=== PATIENT | female | born 1960 | race Caucasian/White ===

== ENCOUNTER 2021-07-23 10:54 | Emergency (ER) | payer OTHER, SELFPAY ==
--- NOTE | ~2021-07-23 | XR_ITS ---
EXAMINATION: XR chest 2V DATE: 07/23/2021 11:15 INDICATION: Cough. TECHNIQUE: Frontal and lateral views of the chest were obtained. COMPARISON: None. FINDINGS: The chest demonstrates clear lungs without pneumonia, pleural effusion, or pneumothorax. Th e heart size is normal. IMPRESSION: 1. No acute cardiopulmonary disease. Reviewed, dictated and finalized at location A. [employer]SEMBLER
--- NOTE | 2021-07-23 10:57 | ED.URI ---
HPI - URI/Sore Throat General Chief Complaint: Upper Respiratory Infection Stated Complaint: COUGH/SORE THROAT/LOSING VOICE/EARACHE Time Seen by Provider: 07/23/21 10:57 Source: patient and RN notes reviewed History of Present Illness HPI Narrative: Patient is a 60-year-old female who presents the urgent care with complaints of cough that started Thursday and voice loss that started last Thursday. Patient states that she has had a cold off and on since May. States that the cough is currently nonproductive and she has been using Aleve D and NyQuil. Denies any fever, chills, nausea, vomiting. Patient has had the Covid vaccine, [employer]. Denies of any known exposures to Covid/flu/strep. No other acute complaints. No acute distress noted. Patient aware of the plan of care. Some parts of this dictation were generated by voice recognition software and may contain typographical and/or grammatical inaccuracies. Related Data Home Medications Medication Instructions Recorded Confirmed atorvastatin 07/23/21 fluoxetine mg 07/23/21 levothyroxine 07/23/21 metoprolol succinate PO 07/23/21 Allergies Allergy/AdvReac Type Severity Reaction Status Date / Time clarithromycin Allergy Verified 08/17/13 13:51 Review of Systems Review of Systems: CONSTITUTIONAL: Denies fever, chills, or sweats. EYES: Denies visual changes, redness, or discharge. ENT: Reports of sinus congestion, postnasal drainage, rhinorrhea and voice loss CARDIOVASCULAR: Denies chest pain, palpitations, or edema. RESPIRATORY: Reports of harsh cough GASTROINTESTINAL: Denies abdominal pain, nausea, vomiting, or diarrhea. GENITOURINARY: Denies dysuria or hematuria. SKIN: Denies rash or itching. MUSCULOSKELETAL: Denies back pain, joint pain, or myalgia. NEUROLOGIC: Denies headache, numbness, or weakness. All other systems reviewed are negative, except as documented in HPI. PMFSH Comments At the time of my signature, I reviewed and agree with the nursing past medical, surgical, social, and family history. There is no relevant family history pertinent to the patient complaint. Exam Narrative: GENERAL: This is a well-nourished, well-developed patient, in no apparent distress. HEAD: normocephalic, atraumatic. EYES: PERRL. Sclera clear/white. Vision is grossly intact. EARS: External ears normal, auditory canals clear and without drainage, TMs normal without perforation. Hearing grossly intact. NOSE: External nose normal with no obvious nasal discharge, nares without redness, clear rhinorrhea. THROAT: Mucous membranes moist, posterior pharynx clear. Postnasal drainage NECK: Neck supple CARDIOVASCULAR: Regular rate and rhythm without murmurs, gallops, or rubs. RESPIRATORY: Diminished right lower, slight crackles throughout. No wheezes. Persistent harsh nonproductive cough SKIN: warm, intact with no suspicious lesions or rash, good texture and turgor. NEURO: awake, alert, and oriented to person, place and time. There were no obvious focal neurologic abnormalities. EXTREMITIES: No clubbing, cyanosis, or edema. Course Vital Signs Vital signs: Vital Signs Temperature 97 F L 07/23/21 11:07 Pulse Rate 78 07/23/21 11:07 Respiratory Rate 16 07/23/21 11:07 Blood Pressure 160/89 H 07/23/21 11:07 Pulse Oximetry 10 L 07/23/21 11:07 Temperature 97 F L 07/23/21 11:07 Pulse Rate 78 07/23/21 11:07 Respiratory Rate 16 07/23/21 11:07 Blood Pressure 160/89 H 07/23/21 11:07 Pulse Oximetry 10 L 07/23/21 11:07 Reviewed-patient is informed that they may have pre-hypertension or hypertension based on a blood pressure reading in the department. I recommend the patient call the primary care provider listed on their discharge instructions or a physician of their choice this week to arrange follow-up for further evaluation of possible pre-hypertension or hypertension. MDM - URI/Sore Throat MDM Narrative Medical decision making narrative: Reviewe
[2021-07-23 11:07] VITALS: BP 160/89; PULSE 78; RESP 16; TEMP 36.1; O2SAT 10
== END 2021-07-23 11:41 | disposition home or self-care (01) ==
PROVIDERS: Emergency Provider Nurse Practitioner Family
DX: J40 Bronchitis, not specified as acute or chronic (principal); E78.00 Pure hypercholesterolemia, unspecified; I10 Essential (primary) hypertension; E03.9 Hypothyroidism, unspecified
CPT/HCPCS: 71046; 99203; G0463

== ENCOUNTER 2022-09-04 10:36 | Emergency (ER) | payer OTHER, SELFPAY ==
--- NOTE | 2022-09-04 10:39 | ED.URI ---
HPI - URI/Sore Throat General Chief Complaint: Upper Respiratory Infection Stated Complaint: COUGH/SINUS/HEADACHE/DRAINAGE Time Seen by Provider: 09/04/22 10:38 Source: patient Mode of arrival: ambulatory Limitations: no limitations History of Present Illness HPI Narrative: Irina is a 61-year-old female patient presenting to clinic today with complaints of cough, sinus drainage, and headache since new year's. She reports her PCP gave her prescription for azithromycin and that improved her symptoms slightly however after she finished at her symptoms return. States that she has had green globular mucus coming from her nose and she is coughing this up as well. She denies a fever but does have a lot of sinus pressure. The cough is keeping her up at night MD elicited complaint: sore throat and nasal congestion Related Data Home Medications Medication Instructions Recorded Confirmed atorvastatin 40 mg tablet 40 mg PO DAILY 07/23/21 09/04/22 fluoxetine 20 mg capsule 20 mg PO DAILY 07/23/21 09/04/22 levothyroxine 125 mcg tablet 125 mcg PO DAILY 07/23/21 09/04/22 metoprolol succinate 50 mg 50 mg PO DAILY 07/23/21 09/04/22 tablet,extended release 24 hr Allergies Allergy/AdvReac Type Severity Reaction Status Date / Time clarithromycin Allergy Other Verified 09/04/22 10:50 Review of Systems Review of Systems: Pertinent positives per HPI. Patient denies any fever, chills, rash, headache, visual changes, dizziness, cough, shortness of breath, chest pain, palpitations, nausea, vomiting, diarrhea, constipation, abdominal pain, or any urinary issues. PMFSH Comments At the time of my signature, I reviewed and agree with the nursing past medical, surgical, social, and family history. There is no relevant family history pertinent to the patient complaint. Exam Narrative: General: Well-developed, well nourished, in no apparent distress Head: Normocephalic, atraumatic Eyes: Pupils equally round and reactive to light bilaterally, EOM intact, sclera and conjunctive clear, no discharge, lids normal Ears: TMs intact and dull, ear canals clear, no drainage, grossly hearing normal. Nose: Nares patent, green nasal discharge, severe inflammation, maxillary, ethmoid, and frontal sinus tenderness. Mouth: Oral pharynx without lesions or masses, good dentition, MMM. Postnasal drip Neck: Supple, trachea midline, no enlargement of anterior or posterior cervical nodes, no thyroid masses or goiter palpable. Cardio: Regular rate and rhythm, s1 and s2 normal, no murmur appreciated. Resp: Clear to auscultation bilaterally, no rhonchi, rales, wheezing or rubs Course Course Emergency Course: Portions of this record may have been created with voice recognition software. Level of Care: Express Care Visit Vital Signs Vital signs: Vital signs reviewed MDM - URI/Sore Throat MDM Narrative Medical decision making narrative: At the time of visit patient is resting comfortably on exam table. I suspect patient has acute bacterial rhinosinusitis. Prescription for Augmentin and prednisone was sent to pharmacy. Supportive measures were discussed with the patient she voiced understanding discharge instructions agrees to treatment plan Differential Diagnosis Differential diagnosis: Likely upper respiratory infection, sinusitis and viral infection Discharge Plan Discharge Clinical Impression: Acute bacterial rhinosinusitis Patient Disposition: Home, Self-Care Condition: Stable Instructions: Antibiotic Form, Rhinosinusitis (ED) Additional Instructions: Discussed patient's elevated blood pressure at the time of visit and recommend follow-up with primary care physician to have this reevaluated within the next week if symptoms persist. Take prescription medications only as prescribed-Augmentin and prednisone Increase fluids and stay well hydrated Tylenol/motrin for pain/fever Flonase and OTC antihistamines as directed VicLeftronic vapor
[2022-09-04 10:47] VITALS: BP 186/98; PULSE 89; RESP 18; TEMP 36.1; O2SAT 99
[2022-09-04 10:58] VITALS: BP 172/105
== END 2022-09-04 11:01 | disposition home or self-care (01) ==
PROVIDERS: Emergency Provider Nurse Practitioner Family
DX: J01.90 Acute sinusitis, unspecified (principal); E78.00 Pure hypercholesterolemia, unspecified; I10 Essential (primary) hypertension; E03.9 Hypothyroidism, unspecified
CPT/HCPCS: 99213; G0463

== ENCOUNTER 2023-08-19 11:41 | Emergency (ER) | payer OTHER, SELFPAY ==
[2023-08-19 11:53] VITALS: BP 152/84; PULSE 67; RESP 16; TEMP 36.1; O2SAT 100
--- NOTE | 2023-08-19 12:17 | ED.URI ---
HPI - URI/Sore Throat General Chief Complaint: Upper Respiratory Infection Stated Complaint: EARACHE/LOSING VOICE/HEADACHE/SINUS/COUGH History of Present Illness HPI Narrative: 62-year-old female presented for complaint of sinus drainage, cough, for about 3 weeks and laryngitis with sore throat for about 2 weeks. And right ear pain for about 3 days. Patient completed a course of a Z-Chidi on 08/15. Denies significant presented symptoms. She denies shortness of breath, wheezing, nausea, vomiting, diarrhea, fevers or chills. Related Data Home Medications Medication Instructions Recorded Confirmed atorvastatin 40 mg tablet 40 mg PO DAILY 07/23/21 08/19/23 fluoxetine 20 mg capsule 20 mg PO DAILY 07/23/21 08/19/23 levothyroxine 125 mcg tablet 125 mcg PO DAILY 07/23/21 08/19/23 metoprolol succinate 50 mg 50 mg PO DAILY 07/23/21 08/19/23 tablet,extended release 24 hr Allergies Allergy/AdvReac Type Severity Reaction Status Date / Time clarithromycin AdvReac Mild Hives Verified 08/19/23 11:47 Review of Systems Review of Systems: ROS per HPI [facility] Past Medical History Medical History (Updated 08/19/23 @ 12:23 by Belkis Reynoso, QUALITY CONTROL TECH [employer]) HTN (hypertension) Exam Narrative: GENERAL: well-appearing, no acute distress. EYES: conjunctivae clear ENT: Mucous membranes moist. Left TM pearly bender with normal light reflex; right TM erythematous, bulging and intact, canal not erythematous, no drainage no tragal tenderness. Oropharynx erythematous without lesions. Tonsils not enlarged and without exudate. Hoarse voice. No drooling, no trismus, uvula midline. No tripod positioning, hot potato voice, or soft palate swelling. NECK: Supple. No lymphadenopathy CHEST: Clear to auscultation, breath sounds equal. No respiratory distress, speaks in full sentences. HEART: Regular rate and rhythm. No murmur heard. SKIN: Warm, dry NEURO: Alert and oriented x3. Course Course Emergency Course: Patient is aware of diagnosis, understands and agrees to treatment plan. Anticipatory guidance given. Patient agrees to follow-up as directed and is aware of reasons to seek care at the emergency department. Portions of this record may have been created with voice recognition software Level of Care: Express Care Visit Vital Signs Vital signs: Vital Signs Temperature 96.9 F L 08/19/23 11:53 Pulse Rate 67 08/19/23 11:53 Respiratory Rate 16 08/19/23 11:53 Blood Pressure 152/84 H 08/19/23 11:53 Pulse Oximetry 100 08/19/23 11:53 Temperature 96.9 F L 08/19/23 11:53 Pulse Rate 67 08/19/23 11:53 Respiratory Rate 16 08/19/23 11:53 Blood Pressure 152/84 H 08/19/23 11:53 Pulse Oximetry 100 08/19/23 11:53 MDM - URI/Sore Throat MDM Narrative Medical decision making narrative: Discussed physical exam findings, Right aOM, and prescriptions with patient. Advised supportive treatments. Patient is appropriate for outpatient treatment and follow-up. Differential Diagnosis Differential diagnosis: Likely upper respiratory infection, otitis media, sinusitis, viral infection and pharyngitis Discharge Plan Discharge Clinical Impression: Laryngitis Otitis media Qualifiers: Otitis media type: suppurative Chronicity: acute Laterality: right Recurrence: non-recurrent Spontaneous tympanic membrane rupture: without spontaneous rupture Qualified Code(s): H66.001 - Acute suppurative otitis media without spontaneous rupture of ear drum, right ear Patient Disposition: Home, Self-Care Condition: Stable Instructions: Antibiotic Form, Ear Infection (ED), Upper Respiratory Infection (ED) Additional Instructions: Take antibiotics and steroids as directed. Recommend antihistamine such as Benadryl, Zyrtec or Ml for sinus congestion Flonase nasal spray, 1 spray in each nostril once daily until symptoms improve Symptomatic treatment includes: rest, fluids, and increase humidity of the air at home.
== END 2023-08-19 12:21 | disposition home or self-care (01) ==
PROVIDERS: Emergency Provider Nurse Practitioner Family
DX: J04.0 Acute laryngitis (principal); H66.001 Acute suppurative otitis media without spontaneous rupture of ear drum, right ear; I10 Essential (primary) hypertension
CPT/HCPCS: 99213; G0463

== ENCOUNTER 2025-05-05 22:45 | Emergency (ER) | payer MEDICARE, SELFPAY ==
--- NOTE | ~2025-05-05 | CT_ITS ---
EXAMINATION: CT abdomen pelvis w con DATE: 05/06/2025 00:56 INDICATION: Right flank pain. TECHNIQUE: Computed tomography (CT) of the abdomen and pelvis was performed with 100 mL Omnipaque 350 intravenous contrast. Automated exposure control and iterative reconstruction technique were employed. The dose-length product was 862.94 mGy-cm. COMPARISON: None. FINDINGS: The visualized portions of the lung bases demonstrate mild atelectasis. No pleural effusion. The heart size is normal. No pericardial effusion. The liver, gallbladder, spleen, pancreas, and adrenal glands are normal. There are cysts in the kidneys measuring up to 15 mm on the right. There is diverticulosis of the colon without evidence of diverticulitis. There are no dilated loops of bowel. The appendix is normal. There are no pathologically enlarged lymph nodes. There is no free intraperitoneal fluid. There is moderate thoracic and lumbar spondylosis. There are Schmorl's nodes at many levels. IMPRESSION: 1. No etiology for the patient's symptoms. Reviewed, dictated and finalized at location E.
[2025-05-05 22:52] VITALS: BP 158/85; PULSE 96; RESP 20; TEMP 36.5; O2SAT 96
[2025-05-06 00:17] LABS: Hematocrit 40.0 % (37.0-47.0); Hemoglobin 13.1 g/dL (12.0-15.0); Immature Granulocyte Percent A 0.2 % (0-0.5); Lymphocytes Absolute Auto 2.33 K/mm3 (0.9-3.2); Mean Corpuscular HGB Conc 32.8 g/dl (32-36); Mean Corpuscular Hemoglobin 27.8 pg (26-34); Mean Corpuscular Volume 84.7 fl (80-100); Nucleated Red Blood Cells Absolute Auto 0.000 K/mm3 (0.0-0.012); Nucleated Red Blood Cells Perc 0.0 % (0.0-0.2); Platelet Count Result 252 k/mm3 (150-375); Red Blood Count 4.72 M/mm3 (4.2-5.4); White Blood Count 8.4 K/mm3 (4.5-10.0)
--- NOTE | 2025-05-06 00:19 | ECG_ITS ---
Test Date: 2025-05-06 00:29:46 Measurements Intervals [place] Rate: 71 P: 52 DE: 196 QRS: 27 QRSD: 94 T: 26 QT: 380 QTc: 413 Interpretive Statements SINUS RHYTHM NORMAL ECG No previous ECG available for comparison Electronically Signed On 05-06-2025 08:47:24 CDT by Dakota Rosales M.D.
[2025-05-06 00:25] LABS: Alanine Aminotransferase 35 U/L (6-35); Albumin Level 4.6 g/dL (3.5-5.1); Alkaline Phosphatase 89 U/L (38-126); Anion Gap 11 mmol/L (4-12); Aspartate Amino Transferase 35 U/L (14-36); Bilirubin,Total 0.2 mg/dL (0.2-1.3); Blood Urea Nitrogen 9 mg/dL (7-17); Calcium 9.3 mg/dL (8.4-10.2); Carbon Dioxide 22 mmol/L (22-30); Chloride 104 mmol/L (98-107); Estimated CRCL calculation 64 ml/min; Estimated Glomerular Filt Rate > 60; Glucose 112 mg/dL (65-110); Lipase 75 U/L (23-300); Potassium 3.8 mmol/L (3.4-5.0); Sodium 137 mmol/L (137-145); Total Protein 7.2 g/dL (6.3-8.2)
[2025-05-06] MEDS: ONDANSETRON INJ 4 MG/2 ML VIAL IV PUSH (00:37)
[2025-05-06] MEDS: MORPHINE SULFATE (*CRX) 4 MG/ML INJ IV PUSH (00:37)
[2025-05-06 00:40] LABS: Add Urine Microscopic? YES; Appearance Urine Cloudy (Clear); Glucose Urine UA Negative (Negative); Leukocyte Esterase Ur 1+ LEU/UL (Negative); Need Manual Microscopic Reviewed; Nitrate Urine Negative (Negative); Specific Grav Ur 1.036 (1.001-1.035)
--- OUTSIDE RECORDS SUMMARY | 2025-05-06 00:59 | XMS_ITS | Clinical Summary ---
Author Organization [facility] Address [address] [place] [address] Care Team Providers Care Supervisor Patching Name Role Phone Floyd Madlonado MD Primary Care Provider [phone] Allergies Active Allergy Reactions Criticality Noted Date Comments Clarithromycin Rash Low 06/17/2013 Medications metoprolol succinate ER 24 hour (TOPROL XL) 50 mg tablet Take 50 mg by mouth daily. Active FLUoxetine (PROZAC) 20 mg tablet Take 20 mg by mouth daily. Active ibandronate (BONIVA) 3 mg/3 mL Syringe Inject 3 mg by intraveous injection one time only. Active atorvastatin (LIPITOR) 40 mg tablet Take 40 mg by mouth Daily LATE. Active ergocalciferol (VITAMIN D2) 50,000 unit capsule 3 Active LEVOTHYROXINE 112 mcg tablet 5 Active nystatin (MYCOSTATIN) 100,000 unit/gram Cream Apply to affected area 2 times daily. 30 Gram 1 5 Active triamcinolone acetonide (KENALOG) 0.5 % Cream Apply to affected area 2 times daily. 30 Gram 1 5 Active Active Problems Problem Noted Date Diagnosed Date Family history of breast cancer in mother 2014 UTI (lower urinary tract infection) 10/27/2014 BV (bacterial vaginosis) 10/27/2014 Essential hypertension, benign 06/17/2013 Unspecified hypothyroidism 06/17/2013 Family History Medical History Relation Name Comments Diabetes Brother Hypertension Father Breast Cancer Mother Diabetes Mother Hypertension Sister brother Relation Name Status Comments Brother Father Mother Sister Social History Tobacco Use Types Packs/Day Years Used Date Smoking Tobacco: Former Cigarettes Smokeless Tobacco: Never Alcohol Use Standard Drinks/Week Comments Yes 0 (1 standard drink = 0.6 oz pur e alcohol) Comments No Sex and Gender Information Value Date Recorded Sex Assigned at Not on file 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 Gender Identity Not on file Sexual Orientation Not on file Occupation Industry Job Start Date Job End Date Not on file Not on file Not on file Not on file Last Filed Vital Signs Vital Sign Reading Time Taken Comments Blood Pressure 122/70 12/12/2014 10:04 AM CDT Pulse - - Temperature - - Respiratory Rate - - Oxygen Saturation - - Inhaled Oxygen Concentration - - Weight 81.6 kg (180 lb) 12/12/2014 10:04 AM CDT Height 168.9 cm (5' 6.5) 12/12/2014 10:04 AM CD T Body Mass Index 28.62 12/12/2014 10:04 AM CDT Plan of Treatment Health Maintenance Due Date Last Done Comments DTAP/TDAP/TD VACCINES (1 - Tdap) 1977 COLORECTAL SCREENING 11/26/2003 Colorectal Cancer Screening 11/26/2003 FIT-DNA Q 3 years 11/26/2003 FIT/FOBT Q 1 year 11/26/2003 Flex Sig/CT Colonography Q 5 years 11/26/2003 PNEUMOCOCCAL VACCINE 50+ YEARS (1 of 1 - PCV) 11/26/19 09 ZOSTER VACCINE (1 of 2) 2008 BREAST CANCER SCREENING 06/27/2016 06/27/2015 OSTEOPOROSIS SCREENING 11/26/2023 INFLUENZA VACCINE (#1) 2025 RSV VACCINE (60+ or ) (1 - 1-dose 75+ series) 2033 Procedures Procedure Name Priority Date/Time Associated Diagnosis Comments MAMMO DIAGNOSTIC BILATERAL W OR WO CAD Routine 06/27/2015 Breast lump or mass from Last 3 Months or Most Recently Relevant to Health Maintenance Results * MAMMO DIGITAL DIAG BILAT (06/27/2015) Anatomical Region Laterality Modality Breast Bilateral Other us Julissa Villarreal MD MAMMO ORDERABLES Final Resu lt from Last 3 Months or Most Recently Relevant to Health Maintenance Insurance [facility] [employer] PPO [id number] Care Teams Supervisor Patching Relationship Specialty [place] [address] [address] [place] [address] PCP - General Radiology 12/12/14
--- OUTSIDE RECORDS SUMMARY | 2025-05-06 00:59 | XMS_ITS | Clinical Summary ---
Author Organization [facility] Address [address] [place] [id number] Phone Care Team Providers Care Supervisor Special Effects Name Role Phone Unavailable Primary Care Provider Unavailabl e Medications FLUoxetine (PROZAC) 10 MG capsule one tablet by mouth once a day 06/09/2013 Active ibandronate (BONIVA) 150 MG tablet once a month 07/05/2013 Active metoprolol succinate XL (TOPROL-XL) 50 MG 24 hr tablet one tablet by mouth once a day 07/05/2013 Active atorvastatin (LIPITOR) 10 MG tablet one tablet by mouth once a day 07/05/2013 Active ergocalciferol (VITAMIN D-2) 44775 units capsule once a every 2 weeks 07/05/2013 Active Active Problems Problem Noted Date Diagnosed Date Essential (primary) hypertension 07/05/2013 Vitamin D deficiency 07/05/2013 Calculus of kidney 06/09/2013 Elevated blood-pressure read ing without diagnosis of hypertension 06/09/2013 Acquired cyst of kidney 06/09/2013 Social History Tobacco Use Types Packs/Day Years Used Date Smoking Tobacco: Never Assessed Comments Unknown Sex and Gender Information Value Date Recorded Sex Assigned at Not on file Legal Sex Female 7:28 AM MST Gender Identity Not on file Sexual Orientation Not on file Last Filed Vital Signs Vital Sign Reading Time Taken Comments Blood Pressure 121/78 07/05/2013 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
--- OUTSIDE RECORDS SUMMARY | 2025-05-06 00:59 | XMS_ITS | Encounter Summary ---
Author Organization [facility] Address 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
--- OUTSIDE RECORDS SUMMARY | 2025-05-06 00:59 | XMS_ITS | Clinical Summary ---
Author Organization [facility] Address [address] [place] [address] Care Team Providers Care Pharmacy Stock Clerk Name Role Phone Catrachito Maldonado MD Primary Care Provider [phone] Source Comments [facility],non-owned Affiliates and Associated Physician Practices is amultiple site organization consisting of ambulatory clinics and hospital sitesin [place], [place], [place] and [place]. This disclosure is being madepursuant to the Care Everywhere program and may not contain all information available regarding this patient. Last updated 18.[facility] Allergies Active Allergy Reactions Criticality Noted Date Comments Clarithromycin 01/09/2017 Azithromycin 01/09/2017 Medications * Be aware that medications may not be up to date on this document. Alwaysverify current medications with the patient. 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 Gender Identity Not on file Sexual Orientation Not on file Last Filed Vital Signs Vital Sign Reading Time Taken Comments Blood Pressure 126/58 01/09/2017 11:24 AM CDT Pulse 60 01/09/2017 11:24 AM CDT Temperature 36.8 C (98.2 F) 01/09/2017 11:24 AM CDT Respiratory Rate 16 01/09/2017 11:24 AM CDT Oxygen Saturation 98% 01/09/2017 11:24 AM CDT Inhaled Oxygen Concentration - - Weight 81.6 kg (180 lb) 01/09/2017 11:24 AM CDT Height 168.9 cm (5' 6.5) 01/09/2017 11:24 AM CD T Body Mass Index 28.62 01/09/2017 11:24 AM CDT Plan of Treatment Health Maintenance Due Date Last Done Comments BONE DENSITY TESTING 1958 COLOGUARD (AGES 45-75) - COL ON CA SCREENING 1958 COLON MONITORING 1958 COLONOSCOPY - COLON CA SCREENING 1958 CT COLONOGRAPHY - COLON CA SCREENING 1958 Colorectal Cancer Screening 1958 FIT - COLON CA SCREENING 1958 FLEX SIG - COLON CA SCREENING 1958 MAMMOGRAM 1958 HEPATITIS C SCREENING 11/20/1976 DTAP/TDAP/TD VACCINES (1 - Tdap) 1977 PNEUMOCOCCAL VACCINE 50+ (1 of 1 - PCV) 2008 ZOSTER VACCINE (1 of 2) 2008 DEPRESSION SCREENING 08/17/2024 COVID-19 VACCINE (1 - 2023-2 5 season) 2025 INFLUENZA VACCINE (#1) 2025 Respiratory Syncytial Virus (RSV) Vaccine Pt: or over 60 yrs (1 - 1-dose 75+ series) 2033 HEPATITIS B VACCINE Aged Out No longe r eligible based on patient's age to complete this topic HIB VACCINE Aged Out No longer eligi ble based on patient's age to complete this topic HPV VACCINE Aged Out No longer eligi ble based on patient's age to complete this topic MENINGOCOCCAL (Group B) VACC INE SHARED DECISION-MAKING Aged Out No longer eligibl e based on patient's age to complete this topic MENINGOCOCCAL GROUPS A/C/Y/W VACCINE Aged Out No longer eligible b ased on patient's age to complete this topic Insurance [facility] Care Teams Pharmacy Stock Clerk Relationship Specialty [place] [address] [address] [place] [address] PCP - General Endocrinology 01/09/17
--- OUTSIDE RECORDS SUMMARY | 2025-05-06 00:59 | XMS_ITS | Clinical Summary ---
Author Organization [facility] [address] [facility] Address [address] [place] [address] Care Team Providers Care Administrative Underwriter Name Role Phone Catrachito Maldonado MD Primary Care Provider [phone] Allergies No known active allergies Encounters Date Type Department Care Team Description 05/03/2025 7:51 AM CDT - 05/03/2025 11:59 PM CDT Hospital Encounter [facility] [address] [place] [address] Abdominal pain, unspecified abdominal location Discharge Disposition: Discharge to home or self care from Last 3 Months Social History Tobacco Use Types Packs/Day Years Used Date Smoking Tobacco: Never Assessed Comments Unknown Sex and Gender Information Value Date Recorded Sex Assigned at Not on file Legal Sex Female 5:29 PM [employer] Gender Identity Not on file Sexual Orientation Not on file Plan of Treatment Health Maintenance Due Date Last Done Comments Breast Cancer Screening-Mammogram 1958 Colon Cancer Screening-Colonoscopy 1958 Depression Screening 1958 Fall Risk Assessment 1958 Hepatitis C Screening 1958 Osteoporosis Screening-Bone Density Scan 1958 Hepatitis B Screening 1976 Pneumococcal vaccine 65+ (1 of 1 - PCV) 2008 Zoster Vaccine (1 of 2) 2008 Well Visit 65+ 11/26/2023 Covid-19 Vaccine (3 - season) 2025, 10/25/2020 Influenza Vaccine (#1) 2025 05/25/2014, 2012 DTaP/Tdap/Td Vaccine (2 - Td or Tdap) 01/25/202606/2016 Procedures Procedure Name Priority Date/Time Associated Diagnosis Comments CT ABDOMEN PELVIS W CONTRAST Schedule Routine, Read Routine (OP Routine) 05/03/2025 8:19 AM CDT Abdominal pain, unspecified abdominal location POCT CREATININE FOR CONTRAST EVALUATION Routine 05/03/2025 8:00 AM CDT from Last 3 Months Results * CT Abdomen Pelvis W Contrast (05/03/2025 8:19 AM CDT) Anatomical Region Laterality Modality Body N/A Computed Tomogra phy 05/03/2025 8:55 AM CDT Impressions 05/03/2025 8:55 AM CDT 1. No definite abdominopelvic CT correlate for the patient's symptoms. Electronically signed by: MD Lan Miller 05/03/2025 8:55 AM CDT EXAMINATION: CT abdomen and pelvis with contrast TECHNIQUE: Computed tomography of the abdomen and pelvis was performed following the administration of nonionic intravenous contrast. HISTORY: Abdominal pain COMPARISON:None. FINDINGS: Abdomen Liver, Gallbladder & bile ducts: The liver is normal in appearance. There is no biliary dilation. The gallbladder is normal in appearance. Pancreas: Normal in appearance. Spleen: Normal in appearance. Adrenals: Normal in appearance. Kidneys, collecting system and ureters: There are small probable cysts in the kidneys. There is no hydronephrosis. Retroperitoneum, lymph nodes, and vessels: The abdominal aorta and its major branches are severely atherosclerotic. There is no discrete retroperitoneal lymphadenopathy. Bowel & Mesentery: The bowel is normal in caliber. There is no obstruction. There is colonic diverticulosis without diverticulitis. There is no appreciable mesenteric free fluid or lymphadenopathy. Pelvis Bladder: Normal appearance. Reproductive organs: No mass. Extraperitoneal, lymph nodes, vessels: There is no discrete pelvic lymphadenopathy. Osseous and body wall: There is multilevel disc degeneration in the lower thoracic and the lumbar spine. There are no worrisome osteolytic or osteoblastic lesions. Lower chest: The lung bases are included on the examination and show tiny centrilobular nodules in the right lower lobe, likely inflammatory. Procedure Note Jamila Young MD - 05/03/2025 EXAMINATION: CT abdomen and pelvis with contrast TECHNIQUE: Computed tomography of the abdomen and pelvis was performed following the administration of nonionic intravenous contrast. HISTORY: Abdominal pain COMPARISON:None. FINDINGS: Abdomen Liver, Gallbladder & bile ducts: The liver is normal in appearance. There is no biliary dilation. The gallbladder is normal in appearance. Pancreas: Normal in appearance. Spleen: Normal in appearance. Adrenals: Normal in appearance. Kidneys, collecting system and ureters: There are small probable cysts in the kidneys. There is no hydronephrosis. Retroperitoneum, lymph nodes, and vessels: The abdominal aorta and its major branches are severely atherosclerotic. There is no discrete retroperitoneal lymphadenopathy. Bowel & Mesentery: The bowel is normal in caliber. There is no obstruction. There is colonic diverticulosis without diverticulitis. There is no appreciable mesenteric free fluid or lymphadenopathy. Pelvis Bladder: Normal appearance. Reproductive organs: No mass. Extraperitoneal, lymph nodes, vessels: There is no discrete pelvic lymphadenopathy. Osseous and body wall: There is multilevel disc degeneration in the lower thoracic and the lumbar spine. There are no worrisome osteolytic or osteoblastic lesions. Lower chest: The lung bases are included on the examination and show tiny centrilobular nodules in the right lower lobe, likely inflammatory. IMPRESSION: 1. No definite abdominopelvic CT correlate for the patient's symptoms. Electronically signed by: Jamila Young MD us Catrachito Maldonado MD IMG CT PROCEDURES Final Result * POCT creatinine for contrast evaluation (05/03/2025 8:00 AM CDT) Creatinine, POC 0.9 0.6 - 1.3 mg/dL Blood 05/03/2025 8:00 AM CDT us Catrachito Maldonado MD POINT OF CARE TEST ORDERABLES Final Result from Last 3 Months Insurance [facility] MEDICARE ADVANTAGE [facility] MEDICARE Address: [facility] [address] [place] [address] Care Teams Administrative Underwriter Relationship Specialty Start Date End Date Catrachito Maldonado MD [address] [facility] [address] [place] [address] PCP - General Endocrinology Diabetes & Metabolism 06/30/24
[2025-05-06 01:12] LABS: Troponin I < 0.012 ng/mL (0.000-0.034)
[2025-05-06] MEDS: cefTRIAXone 2 GM in SODIUM CHLORIDE 0.9% IV 100 ML 200 ML IVPB (02:15)
[2025-05-06 03:22] VITALS: BP 117/73; PULSE 70; RESP 18; O2SAT 96
[2025-05-06 04:48] VITALS: BP 121/71; PULSE 67; RESP 18; O2SAT 99
--- NOTE | 2025-05-06 05:41 | ED.ABDPAIN ---
HPI - Abdominal Pain General Chief Complaint: Abdominal Pain Stated Complaint: right sided abdominal pain Time Seen by Provider: 05/05/25 23:56 History of Present Illness HPI narrative: Patient presents here with right-sided abdominal pain, has been ongoing on and off for last few months, had a CT done outpatient a few days ago that did not show any obvious abnormality, earlier tonight patient started having severe pain again associated with nausea that her breath away, she has had kidney stones in the past, and this feels slightly similar, more on the right/side going down the front. Has also noticed her urine appeared darker. Currently finishing antibiotics, ciprofloxacin and Flagyl prescribed by her PCP for possible diverticulitis. Related Data Home Medications ?Medication ?Instructions ?Recorded ?Confirmed ?Last Taken ?Type atorvastatin 40 mg tablet 40 mg PO DAILY 07/23/21 08/19/23 Unknown History fluoxetine 20 mg capsule 20 mg PO DAILY 07/23/21 08/19/23 Unknown History levothyroxine 125 mcg tablet 125 mcg PO DAILY 07/23/21 08/19/23 Unknown History metoprolol succinate 50 mg 50 mg PO DAILY 07/23/21 08/19/23 Unknown History tablet,extended release 24 hr Allergies Allergy/AdvReac Type Severity Reaction Status Date / Time clarithromycin AdvReac Mild Hives Verified 05/05/25 23:57 Review of Systems Review of Systems: All systems reviewed & are unremarkable except as noted in HPI and below PMFSH Past Medical History Medical History (Updated 05/06/25 @ 04:24 by Kelsie Haywood MD) HTN (hypertension) Exam Narrative: EXAMINATION OF ORGAN SYSTEMS/BODY AREAS: Constitutional: Vital signs per nursing GENERAL:[No acute distress, non-toxic appearing.] HEAD: Normal with no signs of head trauma. EYES: EOMI, conjunctiva normal ENT: Hearing grossly intact LUNGS: Nonlabored breathing. HEART: [Regular rate and rhythm] ABD: [Soft], no tenderness to palpation abdomen EXT: Normal range of motion SKIN: [No rashes or lesions.] NEURO: [Alert and oriented x 3. No gross focal sensory or strength deficits.] PSYCH: Normal affect Course Vital Signs Vital signs: Vital Signs Temperature 97.7 F 05/05/25 22:52 Pulse Rate 96 05/05/25 22:52 Respiratory Rate 20 05/05/25 22:52 Blood Pressure 158/85 H 05/05/25 22:52 Pulse Oximetry 96 05/05/25 22:52 Temperature 97.7 F 05/05/25 22:52 Pulse Rate 67 05/06/25 04:48 Respiratory Rate 18 05/06/25 04:48 Blood Pressure 121/71 05/06/25 04:48 Pulse Oximetry 99 05/06/25 04:48 MDM - Abdominal Pain MDM Narrative Medical decision making narrative: Patient presenting here with right-sided abdominal pain, finishing antibiotics for suspected diverticulitis, though her recent CT was negative for this, has also had kidney stones in the past, had sudden episode of severe pain to the right flank with nausea today and dark urine. With shared decision making with patient, will repeat CT here to ensure no severe colitis, and check for kidney stone. She does have this very minimally elevated lactic, urine does show possible UTI, she is already on ciprofloxacin but I will go ahead and give her an IV dose of ceftriaxone. Repeat lactic is normal. She feels much better after pain medications on re-evaluation, states that her symptoms have essentially resolved. CT abdomen/pelvis does not show any obvious abnormality, though there is some blood and some close stools and urine so I suspect she may have had a tiny stone that passed. Will refer her to urologist start her on Flomax, she already has ciprofloxacin and she is finishing the antibiotics, said this point I do not want to start her on more antibiotics and kill her gut billie but I did ask her to follow up with her PCP for recheck, to make sure that has resolved, and she already has follow-up with Gastroenterology arranged for her abdominal pain. I did let her know she can always return to the ER for any further issues and she is comfortable with this plan. Lab Data 05/06/25 00:03 05/06/25 00:03 Labs: Lab Results 05/06/25 05/06/25 05/06/25 Range/Units 00:03 00:33 02:46 WBC 8.4 (4.5-10.0) K/mm3 RBC 4.72 (4.2-5.4) M/mm3 Hgb 13.1 (12.0-15.0) g/dL Hct 40.0 (37.0-47.0) % MCV 84.7 (80-100) fl MCH 27.8 (26-34) pg MCHC 32.8 (32-36) g/dl RDW 13.1 (11.5-14.5) % Plt Count 252 (150-375) k/mm3 MPV 10.6 H (7.4-10.4) fl Immature Gran % (Auto) 0.2 (0-0.5) % Neut % (Auto) 59.9 (45.5-73.1) % Lymph % (Auto) 27.6 (18.3-44.2) % [place] % (Auto) 8.6 H (2.6-8.5) % Eos % (Auto) 2.5 (0-4.4) % Baso % (Auto) 1.2 (0.2-1.2) % Lymph # (Auto) 2.33 (0.9-3.2) K/mm3 [place] # (Auto) 0.7 H (0.1-0.6) K/mm3 Eos # (Auto) 0.2 (0-0.3) K/mm3 Baso # (Auto) 0.1 (0.0-0.1) K/mm3 Abs Immat Gran (auto) 0.02 (0.00-0.031) K/mm3 Absolute Neuts (auto) 5.1 (1.3-6.7) K/mm3 Absolute Nucleated RBC 0.000 (0.0-0.012) K/mm3 Nucleated RBC % 0.0 (0.0-0.2) % Sodium 137 (137-145) mmol/L Potassium 3.8 (3.4-5.0) mmol/L Chloride 104 (98-107) mmol/L Carbon Dioxide 22 (22-30) mmol/L Anion Gap 11 (4-12) mmol/L BUN 9 (7-17) mg/dL Creatinine 0.81 (0.7-1.0) mg/dL Estim Creat Clear Calc 64 ml/min Estimated GFR > 60 (59 - ) Glucose 112 H (65-110) mg/dL Lactic Acid 2.1 H 1.2 (0.7-2.0) mmol/L Calcium 9.3 (8.4-10.2) mg/dL Total Bilirubin 0.2 (0.2-1.3) mg/dL AST 35 (14-36) U/L ALT 35 (6-35) U/L Alkaline Phosphatase 89 (38-126) U/L Troponin I < 0.012 (0.000-0.034) ng/mL Total Protein 7.2 (6.3-8.2) g/dL Albumin 4.6 (3.5-5.1) g/dL Lipase 75 (23-300) U/L Urine Color Dark yellow (Yellow) Urine Appearance Cloudy H (Clear) Urine pH 5.0 (5.0-9.0) Ur Specific [place] 1.036 H (1.001-1.035) Urine Protein 1+ H (Negative) mg/dL Urine Glucose (UA) Negative (Negative) mg/dL Urine Ketones Trace H (Negative) mg/dL Ur Blood (Man) Trace (Negative) Urine Nitrate Negative (Negative) Urine Bilirubin 1+ H (Negative) Urine Urobilinogen 1.0 (<2.0) mg/dL Add Ur Microanalysis Reviewed Leukocyte Esterase Rfl 1+ H (Negative) MICHAEL/UL Urine RBC 3-5 H (0-2) /hpf Urine WBC 11-20 H (0-3) /hpf Ur Squamous Epith Cells Moderate (Few) /hpf Calcium Oxalate Crystal Present (None) /hpf Urine Bacteria 1+ H /hpf Urine Casts 3-5 Discharge Plan Discharge Clinical Impression: Acute right flank pain Patient Disposition: Home Condition: Stable Instructions: Antibiotic Form, Flank Pain (ED) Additional Instructions: Please finish the antibiotics you have, you can start taking the new medications as prescribed. Please follow-up with your doctor to check a urinalysis again and make sure that the UTI has resolved. You can always return to the emergency room if your pain returns or worsens. You can also follow-up with the urologist. Patient Language: Indonesian Prescriptions: New ondansetron 4 mg tablet,disintegrating 4 mg PO Q8H PRN (Reason: nausea and vomiting) Qty: 10 0RF tamsulosin [Flomax] 0.4 mg capsule 0.4 mg PO DAILY Qty: 14 0RF No Action atorvastatin 40 mg tablet 40 mg PO DAILY metoprolol succinate 50 mg tablet extended release 24 hr 50 mg PO DAILY levothyroxine 125 mcg tablet 125 mcg PO DAILY fluoxetine 20 mg capsule 20 mg PO DAILY prednisone 20 mg tablet 40 mg PO DAILY 5 Days Qty: 10 0RF amoxicillin-pot clavulanate 875-125 mg tablet 1 tablet PO Q12H 7 Days Qty: 14 0RF Follow-up/Referrals: PHYSICIAN,TECHNICAL PROPOSAL WRITER [Primary Care Provider, Internal Medicine] Dave Montejo MD [Physician, Urology] - 2 Days
== END 2025-05-06 05:01 | disposition home or self-care (01) ==
PROVIDERS: Emergency Provider Emergency Medicine
DX: R10.9 Unspecified abdominal pain (principal); I10 Essential (primary) hypertension; Z87.442 Personal history of urinary calculi; Z79.899 Other long term (current) drug therapy
CPT/HCPCS: 36415; 74177; 80053; 81001; 83605; 83690; 84484; 85025; 93005; 96365; 96375; 99284; J0696; J2270; J2405; Q9967